=== PATIENT | female | born 2000 | race American Indian/Alaskan Native ===

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

== ENCOUNTER 2021-10-14 01:40 | Emergency (ER) | payer MEDICAID ==
[2021-10-14 01:45] VITALS: BP 123/74
== END 2021-10-14 18:16 | disposition left against medical advice (07) ==
LOC: ED 01:40
DX: Z00.00 Encounter for general adult medical examination without abnormal findings (principal); Y08.89XA Assault by other specified means, initial encounter; Y93.89 Activity, other specified; Y92.89 Other specified places as the place of occurrence of the external cause; Y99.8 Other external cause status

== ENCOUNTER 2021-10-14 19:39 | Emergency (ER) | payer MEDICAID ==
[2021-10-14 19:58] VITALS: BP 115/61
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
== END 2021-10-15 07:00 | disposition home or self-care (01) ==
LOC: ED 19:39
DX: S01.512A Laceration without foreign body of oral cavity, initial encounter (principal); X58.XXXA Exposure to other specified factors, initial encounter; Y93.89 Activity, other specified; Y92.89 Other specified places as the place of occurrence of the external cause; Y99.8 Other external cause status
CPT/HCPCS: 99282